=== PATIENT | male | born 1975 | race Two or more races ===

== ENCOUNTER 2024-03-13 19:25 | Inpatient (IN) | payer BC, OTHER ==
[~2024-03-13] VITALS: Ht 162.6 cm; Wt 95.7 kg
[2024-03-13 20:20] LABS: Basophils # (auto) 0.1 10 ^3/uL (0-0.2); Basophils % (auto) 0.7 % (0.0-2.0); Eosinophils # (auto) 0.1 10 ^3/uL (0-0.8); Eosinophils % (auto) 0.9 % (0.0-7.0); Hematocrit 46.2 % (41.0-53.0); Hemoglobin 15.6 g/dL (13.5-17.5); Lymphocytes # (auto) 2.1 10 ^3/uL (0.4-5.4); Lymphocytes % (auto) 29.3 % (10.0-50.0); Mean Corpuscular Hemoglobin 28.5 pg (28.0-32.0); Mean Corpuscular Hgb Conc. 33.8 g/dL (32.0-36.0); Mean Corpuscular Volume 84.2 fL (80.0-100.0); Monocytes # (auto) 0.4 10 ^3/uL (0-1.3); Monocytes % (auto) 6.2 % (0.0-12.0); Neutrophils # (auto) 4.4 10 ^3/uL (1.6-8.6); Neutrophils % (auto) 62.9 % (37.0-80.0); Nucleated Red Blood Cells % 0.1 %; Red Blood Cells 5.49 10^6/uL (4.5-5.90); Red Cell Distribution Width 13.3 % (11.8-14.3)
[2024-03-13 20:39] LABS: Alanine Aminotransferase 30 U/L (7-40); Albumin 4.8 g/dL (3.2-4.8); Alkaline Phosphatase 99 U/L (46-116); Anion Gap 6 (5-15); Aspartate Aminotransferase 19 U/L (13-40); BUN/Creatinine Ratio 9.6 (10.0-20.0); Bilirubin, Total 0.8 mg/dL (0.2-1.0); Blood Urea Nitrogen 8 mg/dL (9-23); Calcium 9.7 mg/dL (8.5-10.1); Carbon Dioxide 26 mmol/L (20-30); Chloride 107 mmol/L (98-107); Glucose 89 mg/dL (74-106); Potassium 3.4 mmol/L (3.5-5.1); Sodium 139 mmol/L (136-145); Total Protein 7.7 g/dL (5.7-8.2)
[2024-03-13] MEDS: HYDROcodone-ACET 5/325MG TAB PO ONE (20:44)
[2024-03-13] MEDS: cloNIDine HCL 0.1 MG TAB PO ONE (21:21)
[2024-03-13] MEDS ORDERED: ONDANSETRON HCL 4 MG/2 ML VIAL IV PRN (22:00)
[2024-03-13] MEDS ORDERED: DOCUSATE SOD 100 MG CAP PO PRN (22:00)
[2024-03-13] MEDS ORDERED: HYDROcodone-ACET 5/325MG TAB PO PRN (22:00)
[2024-03-13] MEDS: HYDROmorphone HCL 2 MG/ML VL/or syr IV ONE (22:45)
[2024-03-13] MEDS: SODIUM CHLOR 0.9% PF (SALINE LOCK) 10ML VIAL/SYR IV SCH (22:47)
[2024-03-13] MEDS ORDERED: MORPHINE SULFATE INJ 2 MG/ml SYRG IV PRN (23:00)
[2024-03-13] MEDS ORDERED: NITROGLYCERIN 0.4 MG SL TAB SL PRN (23:00)
[2024-03-13] MEDS ORDERED: ARTIFICIAL TEARS 15ml EACHEYE PRN ×2 (23:30→23:45)
[2024-03-13 23:37] VITALS: PULSE 85; RESP 24; O2SAT 94
[2024-03-14] VITALS (8 sets, daily range): BP systolic 113–146; BP diastolic 79–94; PULSE 66–86; RESP 16–18; TEMP 97.9–99.1; O2SAT 95–97
[2024-03-14] MEDS: METOPROLOL TARTRATE 25 MG TAB PO SCH (00:14)
[2024-03-14] MEDS: POTASSIUM CHL 20 Meq TABLET PO ONE (00:17)
[2024-03-14] MEDS: CLINDAMYCIN 600MG IV 50 ML IV ONE (00:30)
[2024-03-14] MEDS ORDERED: AMOX500C2 PO (04:06)
[2024-03-14] MEDS ORDERED: IBUP-1456 PO (04:06)
[2024-03-14 06:13] LABS: Basophils # (auto) 0 10 ^3/uL (0-0.2); Basophils % (auto) 0.5 % (0.0-2.0); Eosinophils # (auto) 0.1 10 ^3/uL (0-0.8); Eosinophils % (auto) 1.4 % (0.0-7.0); Hematocrit 42.8 % (41.0-53.0); Hemoglobin 14.6 g/dL (13.5-17.5); Lymphocytes # (auto) 1.7 10 ^3/uL (0.4-5.4); Lymphocytes % (auto) 30.9 % (10.0-50.0); Mean Corpuscular Hemoglobin 28.7 pg (28.0-32.0); Mean Corpuscular Hgb Conc. 34.2 g/dL (32.0-36.0); Mean Corpuscular Volume 83.8 fL (80.0-100.0); Monocytes # (auto) 0.4 10 ^3/uL (0-1.3); Monocytes % (auto) 7.6 % (0.0-12.0); Neutrophils # (auto) 3.2 10 ^3/uL (1.6-8.6); Neutrophils % (auto) 59.6 % (37.0-80.0); Nucleated Red Blood Cells % 0.1 %; Red Blood Cells 5.11 10^6/uL (4.5-5.90); Red Cell Distribution Width 13.2 % (11.8-14.3); White Blood Cell 5.4 10^3/uL (4.4-10.8)
[2024-03-14] MEDS: CLINDAMYCIN 600MG IV 50 ML IV SCH (06:34)
[2024-03-14 06:54] LABS: Alanine Aminotransferase 25 U/L (7-40); Alkaline Phosphatase 79 U/L (46-116); Anion Gap 1 (5-15); BUN/Creatinine Ratio 13.4 (10.0-20.0); Bilirubin, Total 0.9 mg/dL (0.2-1.0); Blood Urea Nitrogen 11 mg/dL (9-23); Calcium 9.2 mg/dL (8.7-10.4); Carbon Dioxide 28 mmol/L (20-30); Chloride 108 mmol/L (98-107); Glucose 94 mg/dL (74-106); Potassium 3.9 mmol/L (3.5-5.1); Sodium 137 mmol/L (136-145)
[2024-03-14 06:55] LABS: Total Protein 6.5 g/dL (5.7-8.2)
[2024-03-14 07:10] LABS: Aspartate Aminotransferase 15 U/L (13-40)
[2024-03-14] MEDS: AMOXICILLIN/CLAVULAN 500 MG TAB PO ONE (08:15)
[2024-03-14] MEDS ORDERED: ACETAMINOPHEN 325 MG TAB PO PRN (08:30)
[2024-03-14] MEDS ORDERED: amLODIPine BESYLATE 5 MG TAB PO SCH (10:00)
[2024-03-14] MEDS: IBUPROFEN 600 MG TAB PO PRN (10:08)
[2024-03-14] MEDS ORDERED: AMOX250C3 PO (10:29)
[2024-03-14] MEDS: PIPERACILLIN-TAZOB 3.375GM 100 ML IV SCH (13:00)
[2024-03-14] MEDS ORDERED: AMOXICILLIN/CLAVULAN 500 MG TAB PO SCH (14:00)
[2024-03-15] VITALS (9 sets, daily range): BP systolic 109–165; BP diastolic 78–103; PULSE 74–112; RESP 16–19; TEMP 97.7–98.5; O2SAT 95–97
[2024-03-15] MEDS: IBUPROFEN 400 MG TAB PO PRN (00:12)
[2024-03-15 06:16] LABS: Anion Gap 6 (5-15); Carbon Dioxide 26 mmol/L (20-30); Chloride 107 mmol/L (98-107); Potassium 3.9 mmol/L (3.5-5.1); Sodium 139 mmol/L (136-145)
[2024-03-15 06:17] LABS: Calcium 9.3 mg/dL (8.5-10.1)
[2024-03-15 06:22] LABS: BUN/Creatinine Ratio 12.5 (10.0-20.0); Blood Urea Nitrogen 11 mg/dL (9-23); Glucose 90 mg/dL (74-106); Triglycerides 157 mg/dL (< 150)
[2024-03-15 06:23] LABS: LDL Cholesterol 103 mg/dL (< 100); Magnesium 1.9 mg/dL (1.6-2.6)
[2024-03-15 06:24] LABS: Cholesterol 145 mg/dL (< 200); HDL Cholesterol 32 mg/dL (40-59)
[2024-03-15 08:07] LABS: Varicella Zoster IgG Antibody 1947 index (Immune >165)
[2024-03-15] MEDS: hydrALAZINE HCL 20 MG/ML VL IV PRN (08:18)
[2024-03-15] MEDS: LISINOPRIL 5 MG TAB PO SCH ×2 (08:18→12:26)
[2024-03-15 09:03] LABS: Urine Bacteria None Seen /hpf (None Seen)
[2024-03-15 09:14] LABS: Urine Blood Negative /uL (Negative); Urine Clarity Clear (Clear); Urine Color Colorless (Yellow); Urine Protein, UAD Negative (Negative); Urine Urobilinogen Normal (Negative); Urine WBC <1 /hpf (0 - 3)
[2024-03-15] MEDS: traMADol HCL 50 MG TAB PO PRN (10:53)
[2024-03-15] MEDS: LISINOPRIL 5 MG TAB PO ONE (13:15)
[2024-03-15] MEDS: ATORVASTATIN 20 MG TAB PO SCH (22:27)
[2024-03-16] VITALS (8 sets, daily range): BP systolic 106–138; BP diastolic 76–96; PULSE 58–96; RESP 16–20; TEMP 97.8–98.8; O2SAT 95–99
[2024-03-16] MEDS: LISINOPRIL 5 MG TAB PO SCH (08:24)
[2024-03-16] MEDS: MELATONIN 5 MG TAB PO ONE (23:36)
[2024-03-17 01:00] VITALS: BP 133/87; PULSE 85; RESP 18; TEMP 98.5; O2SAT 98
[2024-03-17 05:00] VITALS: BP 124/80; PULSE 80; RESP 18; TEMP 98.4; O2SAT 99
[2024-03-17 08:30] VITALS: BP 143/93; PULSE 108; PULSE 72; RESP 18; RESP 20; TEMP 98; TEMP 98.1; O2SAT 95
[2024-03-17] MEDS ORDERED: MELATONIN 5 MG TAB PO ONE (22:00)
[2024-03-18 14:06] LABS: Varicella Zoster IgM Antibody <0.91 index (0.00-0.90)
== END 2024-03-17 13:40 | disposition left against medical advice (07) | DRG 153 ==
LOC: ER 19:25 → TELE 22:50 → TELE-E-ADS 03-14 02:18 → EAST 03-14 22:50
PROVIDERS: ADMIT Internal Medicine; ATTEND Internal Medicine
DX: H70.002 Acute mastoiditis without complications, left ear (principal); I10 Essential (primary) hypertension; H66.92 Otitis media, unspecified, left ear; E87.6 Hypokalemia; E66.9 Obesity, unspecified; E78.5 Hyperlipidemia, unspecified; Z53.29 Procedure and treatment not carried out because of patient's decision for other reasons; Z68.36 Body mass index [BMI] 36.0-36.9, adult
CPT/HCPCS: 36415; 70450; 80048; 80053; 80061; 81001; 82962; 83036; 83605; 83735; 84443; 85025; 86787; 93005; 93306; 96365; G0378; J2543; J3490